=== PATIENT | male | born 1935 | race Caucasian/White ===

== ENCOUNTER 2017-02-14 22:33 | Inpatient (IN) | payer MEDICARE, OTHER ==
[~2017-02-14] VITALS: Ht 175.3 cm; Wt 49.4 kg
[~2017-02-14 22:33] MED LIST: CIPR500T4 PO; DONE10TA3 PO; ESCI10TA61 PO; FINA5TAB1 PO; MECL-305 PO; MEGE40SU6 PO; NAPR375T2 PO; OMEP40EC1 PO
--- NOTE | 2017-02-14 22:33 | NUR ---
BIBA TO ER BED 4
--- NOTE | 2017-02-14 22:35 | NUR ---
Patient being evaluated by DR. KLINE at bedside.
[2017-02-14 22:40] VITALS: BP 111/72
[2017-02-14] MEDS ORDERED: NACL 0.9% 1,000 ML IV ONE ×2 (22:40→22:45)
--- NOTE | 2017-02-14 22:40 | NUR ---
81Y/M PT. BIBA TO ED WITH C/O GENERALIZED WEAKNESS. PER EMS;PT.LOST APPETITE X 3DAYS, DIFFICULTY SWALLOWING AND NOT EATING X 3 DAYS. HX. DEMENTIA. DENIES N/V/D; SKIN IS PINK/WARM/DRY; PT. ALERT WITH WEAKNESS, UNABLE TO AMBULATE; LUNGS DIMINISHED BL; HR EVEN AND REGULAR; PT DENIES ANY FEVER, CP, SOB, OR COUGH AT THIS TIME; PATIENT STATES PAIN OF 0/10 AT THIS TIME; VSS; PATIENT POSITIONED FOR COMFORT; HOB ELEVATED; BEDRAILS UP X2; BED DOWN. ER MD MADE AWARE OF PT STATUS.
[2017-02-14 23:43] LABS: PROTHROMBIN TIME 11.1 secs (10.8-13.4)
[2017-02-14 23:44] LABS: INR 1.2 (0.8-1.2); PARTIAL THROMBOPLASTIN TIME 21.4 secs (22-35.6)
[2017-02-14 23:50] LABS: MEAN CORPUSCULAR VOLUME 106 fL (80-94); RED BLOOD CELL COUNT(AUTO) 4.89 MIL/uL (4.20-6.10); WHITE BLOOD COUNT (AUTO) 9.3 K/uL (4.8-10.8)
[2017-02-14 23:51] LABS: MEAN CORPUSCULAR HEMOGLOBIN 33 pg (27-31); MEAN CORPUSCULAR HGB CONC 31 g/dL (33-37); PLATELET COUNT (AUTO) 126 K/uL (140-450); RED CELL DISTRIBUTION WIDTH 15.3 % (11.6-13.7)
[2017-02-14 23:53] LABS: BAND % (MANUAL) 26 % (0-8); EOSINOPHILS % (MANUAL) 3 % (0-4); LYMPHOCYTES % (MANUAL) 18 % (20-46); MONOCYTES % (MANUAL) 4 % (5-12); NEUTROPHILS % (MANUAL) 49 (43-65)
[2017-02-15] VITALS (8 sets, daily range): BP systolic 98–125; BP diastolic 54–70
[2017-02-15 00:02] LABS: ANION GAP 20.2 (8-16); CARBON DIOXIDE 25.2 mmol/L (21-32); CHLORIDE 131 mmol/L (98-107); GLUCOSE 113 mg/dL (74-106); POTASSIUM 5.4 mmol/L (3.5-5.1); SODIUM SERUM 171 mmol/L (136-145)
[2017-02-15 00:03] LABS: CALCIUM 9.2 mg/dL (8.5-10.1); CREATININE 5.4 mg/dL (0.6-1.3); UREA NITROGEN, BLOOD 109 mg/dL (7-18)
[2017-02-15 00:04] LABS: ALANINE AMINOTRANSFERASE 23 U/L (12-78); ALBUMIN 2.6 g/dL (3.4-5.0); ALKALINE PHOSPHATASE 108 U/L (46-116); ASPARTATE AMINOTRANSFERASE 28 U/L (15-37); TOTAL BILIRUBIN 1.1 mg/dL (0.0-1.0); TOTAL PROTEIN, SERUM 7.8 g/dL (6.4-8.2)
[2017-02-15 00:05] LABS: LACTIC ACID 1.7 mmol/L (0.4-2.0)
[2017-02-15 00:30] LABS: APPEARANCE,URINE CLEAR (CLEAR); COLOR,URINE YELLOW (YELLOW); PH,URINE 5.5 (5.0-9.0); PROTEIN,URINE 1+ (NEGATIVE)
--- NOTE | 2017-02-15 00:30 | NUR ---
Patient appears to be resting comfortably in bed. Vital Signs within normal limits. Respirations even and unlabored.
[2017-02-15 00:31] LABS: BILIRUBIN,URINE NEGATIVE (NEGATIVE); BLOOD, URINE 3+ (NEGATIVE); LEUKOCYTE ESTERASE ,URINE TRACE (NEGATIVE); NITRITE, URINE NEGATIVE (NEGATIVE); UGLUCOSE NEGATIVE (NEGATIVE); UROBILINOGEN,URINE 0.2 EU/dL (0.2 - 1)
[2017-02-15 00:32] LABS: BACTERIA,URINE 3+ /HPF (None Seen); HYALINE CASTS, URINE 0-3 /LPF (None Seen); RBC,URINE TOO NUMEROUS TO COUN /HPF (0-5)
[2017-02-15] MEDS ORDERED: MAGNESIUM OXIDE 400 MG TAB PO PRN ×2 (00:50→02:40)
[2017-02-15] MEDS ORDERED: ALBUTEROL 0.083% 2.5 MG/3 ML NEBU INH PRN ×2 (00:50→08:05)
[2017-02-15] MEDS ORDERED: MAG SULF 2000 MG/WATER PREMIX 50 ML IV PRN ×2 (00:50→02:40)
[2017-02-15] MEDS ORDERED: MORPHINE SULFATE 2 MG/ML SYR IVP PRN (00:50)
[2017-02-15] MEDS ORDERED: ACETAMINOPHEN 325 MG TAB PO PRN (00:50)
[2017-02-15] MEDS ORDERED: IPRATROPIUM 0.02% 0.5 MG/2.5 ML NEBU INH PRN ×2 (00:50→08:05)
[2017-02-15] MEDS ORDERED: LORazepam 2 MG/ML VIAL IVP PRN (00:50)
[2017-02-15] MEDS ORDERED: diphenhydrAMINE 50 MG/ML VIAL IVP PRN (00:50)
[2017-02-15] MEDS ORDERED: HYDROcodone/APAP 5/325 MG 1 TAB TAB PO PRN ×2 (00:50)
[2017-02-15] MEDS ORDERED: BISACODYL 10 MG SUPP RC PRN (00:50)
[2017-02-15] MEDS ORDERED: ACETAMINOPHEN 650 MG SUPP RC PRN (00:50)
[2017-02-15] MEDS ORDERED: guaiFENesin DM 200/20 MG-10 ML 10 ML UDC PO PRN (00:50)
[2017-02-15] MEDS ORDERED: cloNIDine 0.1 MG TAB PO PRN (00:50)
[2017-02-15] MEDS ORDERED: POTASSIUM CHLORIDE 10 MEQ TABER PO PRN ×2 (00:50→02:40)
[2017-02-15] MEDS ORDERED: DOCUSATE SODIUM 250 MG GELCAP PO PRN (00:50)
[2017-02-15] MEDS ORDERED: ALUMINUM HYD/MAG/SIMETHICONE 30 ML UDC PO PRN (00:50)
[2017-02-15] MEDS ORDERED: SODIUM PHOSPHATE 118 ML ENEM RC PRN (00:50)
[2017-02-15] MEDS ORDERED: ONDANSETRON 4 MG/2 ML VIAL IVP PRN (00:50)
[2017-02-15] MEDS: NACL 0.45% 1,000 ML IV SCH ×3 (02:10→09:02)
--- NOTE | 2017-02-15 02:10 | NUR ---
RECEIVED PT TRANSFERRED FROM ER VIA PAMELLA MAURER, INITIAL ASSESSMENT STARTED, PT IS AAOX1, CONFUSED, APHASIC, NOT ABLE TO FOLLOW COMMANDS AND MAKE NEEDS KNOWN, FLACC 0, NO S/S OF SOB, BREATHING EVEN AND UNLABORED, DIMINISHED LUNG SOUNDS, ON O2 AT 2 L VIA NC, NO S/S OF CHEST PAIN, SR ON FINANCIAL REPRESENTATIVE, SOFT ABD WITH HYPOREACTIVE BOWEL SOUNDS, INCONTINENT WITH B&B'S, GENERALIZED WEAKNESS TO ALL EXTREMITIES, AFEBRILE, SKIN IS WARM AND DRY TO TOUCH, OPEN WOUND NOTED TO SACRAL AREA, (PICTURES TAKEN IN ER). IV SITE TO LEFT FOREARM 18 GA, PATENT AND INTACT, SL. PLACED PT TO COMFORT POSITION, FALL PRECAUTION AND ASPIRATION PRECAUTION IN PLACE, CALL LIGHT WITHIN REACH, WILL CONTINUE TO MONITOR.
--- NOTE | 2017-02-15 02:27 | NUR ---
CALLED DR. KRUEGER TO CLARIFY ORDERS. DR. KRUEGER SAID NO REPEAT TROPONIN, NO DIET ORDERS YET, NPO AT THIS TIME, MAGNESIUM SULFATE IV, K DUR, MAG OX ARE PRN ORDERS ONLY, WILL EDIT ORDERS TO DISREGARD THE "ONCE". DR. KRUEGER SAID TO INSERT LEGER CATH. WILL CONTINUE TO MONITOR PT. Addendum: 02/15/17 at 0524 by Jorge Rhoades RN DR. KRUEGER ALSO SAID NO ELECTROLYTES TO BE GIVEN FOR NOW.
--- NOTE | 2017-02-15 02:30 | NUR ---
Patient will be admitted to care of DR. GARCIA. Admited to ICU. Will go to room ICU 6. Belongings list completed. Report to JENNY SEAY.
[2017-02-15] MEDS ORDERED: PNEUMOCOCCAL VACCINE 23 MCG/0.5 ML VIAL IMVAC SCH (03:15)
--- NOTE | 2017-02-15 03:30 | NUR ---
LEGER CATHETER INSERTED ORDERED WITH STERILE TECHNIQUE, PT TOLERATED WELL.
--- NOTE | 2017-02-15 04:00 | NUR ---
PT IS ASLEEP IN BED, VSS. AM CARE PROVIDED, PT HAD A SMALL SOFT STOOL, LETICIA CARE PROVIDED, POSITION CHANGED FOR OFF LOAD PRESSURE.
--- NOTE | 2017-02-15 06:00 | NUR ---
NO CHANGE OF CONDITION AT THIS TIME, VSS. POSITION CHANGED FOR OFF LOAD PRESSURE.
--- NOTE | 2017-02-15 07:09 | NUR ---
REPORT GIVEN TO JENNY RAPHAEL AND JENNY LAWS FOR CONTINUE OF CARE, PT IS IN STABLE CONDITION AT THIS TIME.
--- NOTE | 2017-02-15 07:15 | NUR ---
RECEIVED REPORT FROM JENNY SEAY. PT IS SLEEPING IN BED. LETHARGIC. OPENS EYES, RESPOND TO TACTILE STIMULI. PT IS ON ROOM AIR. MOVES BILATERAL UPPER AND LOWER EXTREMITIES. SOFT MITTEN IN PLACE BILATERAL UPPER EXTREMITIES. LEFT FOREARM IV 18 GAUGE. PATENT AND INTACT. SKIN NOT INTACT. WOUNDS NOTED ON SACRUM AND BILATERAL UPPER AND LOWER EXTREMITIES. LEGER CATHETER IN PLACE. DRAINING TO GRAVITY DRAINAGE BAG. SAFETY PRECAUTIONS IN PLACE WITH BED IN LOWEST POSITION AND SIDE RAILS UP. CALL LIGHT WITHIN REACH. PT SR ON MONITOR. WILL CONTINUE TO MONITOR.
--- NOTE | 2017-02-15 07:15 | NUR ---
RECEIVED REPORT FROM JENNY SEAY. PT SLEEPING IN BED.
--- NOTE | 2017-02-15 07:30 | NUR ---
RT AT BEDSIDE TO ASSESS.
--- NOTE | 2017-02-15 07:45 | NUR ---
PT HAD SMALL BM. SOFT AND BROWN IN COLOR. LETICIA CARE PROVIDED. TURN AND REPOSITIONED FOR COMFORT. WILL CONTINUE TO MONITOR.
[2017-02-15] MEDS: ENOXAPARIN 30 MG/0.3 ML SYR SUBQ SCH (08:45)
--- NOTE | 2017-02-15 08:56 | NUR ---
MEDS GIVEN TOLERATED WELL
[2017-02-15 09:12] LABS: ANION GAP 1.5 (8-16); CALCIUM 8.5 mg/dL (8.5-10.1); CARBON DIOXIDE 22.3 mmol/L (21-32); CHLORIDE 132 mmol/L (98-107); GLUCOSE 81 mg/dL (74-106); POTASSIUM 4.8 mmol/L (3.5-5.1); SODIUM SERUM 151 mmol/L (136-145); UREA NITROGEN, BLOOD 100 mg/dL (7-18)
[2017-02-15 09:13] LABS: CREATININE 4.9 mg/dL (0.6-1.3)
--- NOTE | 2017-02-15 09:15 | NUR ---
PATIENT HAS BEEN SCREENED AND CATEGORIZED HIGH NUTRITION RISK. PATIENT WILL BE SEEN WITHIN 1-2 DAYS OF ADMISSION. 02/15/17-02/16/[address]
--- NOTE | 2017-02-15 09:50 | NUR ---
WOUND CARE EVALUATION NOTES: REASON FOR EVALUATION: OPEN WOUNDS COMPLETE SKIN ASSESSMENT DONE ON THIS 81 Y/O MALE PATIENT FROM HOME TO [facility], WITH INITIAL DIAGNOSIS OF DEHYDRATION, HYPERNATREMIA, HYPERKALEMIA AND ACUTE RENAL FAILURE. PAST MEDICAL HISTORY INCLUDE SEVERE DEMENTIA, PARKINSON'S DISEASE, HYPERTENSION AND ASTHMA. ALL ABOVE INFORMATION WAS OBTAINED FROM THE ADMISSION H&P. LABS ARE WBC 9.3, H/H 16.0/48, GLUCOSE 81, ALBUMIN 2.6, PT/INR 11.1/1.2 AND PTT 21.4. CURRENT MEDS INCLUDE ENOXAPARIN, ATIVAN, MORPHINE AND NORCO. PATIENT IS LETHARGIC AT THIS TIME, NON VERBAL BUT AROUSABLE BY NAME. ABLE TO FOLLOW SIMPLE COMMANDS. SKIN WARM TO TOUCH WNL, TOENAILS ARE THICKENED YELLOW, NO EDEMA, NO HAIR GROWTH AND +2 BILATERAL PEDAL PULSES. URINE AND BOWEL INCONTINENT, WITH FC 16FR PATENT AND INTACT TO LIGHT MARISOL URINE IN MODERATE AMOUNT. NOTED TO HAVE SOFT GREENISH STOOLS IN MODERATE AMOUNT. SURGICAL SCARRING NOTED ON BILATERAL KNEES AND MIDLINE ABDOMEN. NEEDS MAX ASSISTANCE IN TURNING. INITIAL PLAN OF CARE AND PRESSURE PREVENTIVE MEASURES DISCUSSED, UNABLE TO VERBALIZE UNDERSTANDING. WILL REINFORCE TEACHING. INTEGUMENTARY: BUE - ECCHYMOSIS - SCATTERED PURPLE LLE - ECCHYMOSIS - PURPLE BILATERAL HEELS - BLANCHABLE REDNESS SACRALCOCCYX - FUNGAL LIKE RASH WITH PARTIAL THICKNESS EROSION RECOMMENDATIONS: -SACRALCOCCYX TO PERIAREA: CLEANSE WITH MILD SOAP AND WATER, PAT DRY, APPLY ANTIFUNGAL CLEAR OINT BIDWC AND PRN WITH SOILING. LEAVE OPEN TO AIR -TURN AND REPOSITION PATIENT Q2H TO LEFT AND RIGHT SIDE ONLY TO OFFLOAD SACRALCOCCYX -ASSESS AND MONITOR SKIN CONDITION DURING POSITION CHANGE, PLEASE PAY PARTICULAR ATTENTION TO SACRALCOCCYX, ELBOWS AND HEELS -OFFLOAD BILATERAL HEELS BY PLACING PILLOWS UNDER CALVES AT ALL TIMES, UNLESS OTHERWISE CONTRAINDICATED -KEEP SKIN CLEAN AND DRY AT ALL TIMES. -PRESSURE REDISTRIBUTION SURFACE THERAPY. RECOMMENDATIONS DISCUSSED WITH PRIMARY RN. WILL FOLLOW UP PATIENT Q 7 DAYS AND PRN. PLEASE CONTACT [facility] FOR ANY CONCERNS, QUESTIONS AND CHANGES IN SKIN CONDITION.
--- NOTE | 2017-02-15 09:50 | NUR ---
WOUND CARE NURSE AT BEDSIDE TO EVALUATE PT. WILL F/U WITH ORDERS.
[2017-02-15] MEDS ORDERED: ANTIFUNGAL CLEAR OINTMENT TP PRN (10:00)
--- NOTE | 2017-02-15 10:00 | NUR ---
SMALL BM NOTED. SOFT AND BROWN. LETICIA CARE GIVEN. RETURN PT TO COMFORTABLE STATE. IV DRESSING CHANGED. DRESSING IS CLEAN. IV IS PATENT AND INTACT.
--- NOTE | 2017-02-15 10:04 | NUR ---
PER KIKI, INSURANCE VERIFIED FOR HN, TRACKING NUMBER IS [id number] NO REVIEW UNLESS THEY CALL FAXED INITIAL REVIEW TO [facility] [phone] PHONE PRAVIN [phone]
--- NOTE | 2017-02-15 11:30 | NUR ---
DR. KRUEGER AT BEDSIDE. WILL F/U WITH ORDERS.
--- NOTE | 2017-02-15 11:44 | NUR ---
02/14/17 RD INITIAL ASSESSMENT COMPLETED PLEASE REFER TO NUTRITION ASSESSMENT UNDER CARE ACTIVITY FOR ESTIMATED NUTRITIONAL NEEDS. RD RECOMMENDATIONS: 1. WHEN MEDICALLY APPROPRIATE ADVANCE DIET TO REGULAR WITH TEXTURE MODIFICATIONS PER SWALLOW EVAL. 2. CONSIDER SWALLOW EVAL D/T DIFFICULTY CHEWING AND SWALLOWING 3. INCREASED PROTEIN NEEDED FOR WOUND HEALING.--NOTE RD WILL MONITOR RENAL LABS 4. RD WILL F/U 2-3 DAYS; HIGH RISK. JOAQUINA HUDSON RD
[2017-02-15] MEDS: ANTIFUNGAL CLEAR OINTMENT TP SCH (12:02)
--- NOTE | 2017-02-15 13:00 | NUR ---
DAUGHTER AND AT BEDSIDE. ALL QUESTIONS ANSWERED.
--- NOTE | 2017-02-15 13:14 | NUR ---
MEDICATION ADMINISTERED ORDERED. TOLERATED WELL
--- NOTE | 2017-02-15 13:25 | NUR ---
DR. HUERTA AT BED SIDE TO SEE PT. WILL F/U WITH ORDERS.
[2017-02-15] MEDS: NACL 0.9% 1,000 ML IV SCH ×2 (13:46→23:40)
--- NOTE | 2017-02-15 13:56 | NUR ---
SMALL BM NOTED. SOFT AND BROWN. LETICIA CARE GIVEN. COMFORT MET.
--- NOTE | 2017-02-15 15:30 | NUR ---
PT RESTING COMFORTABLY. NO ACUTE DISTRESS NOTED. FLACC 0. FAMILY AT BEDSIDE.
--- NOTE | 2017-02-15 17:52 | NUR ---
REPORT GIVEN TO JENNY LEWIS. PT TO BE TRANSFERRED TO TELE 122 B.
--- NOTE | 2017-02-15 17:53 | NUR ---
RECEIVED REPORT FROM THE ICU NURSE. PT IS TO BE TRANSFERRED FROM ICU TO TELE. WILL GET ROOM READY. WILL AWAIT PT'S ARRIVAL ON TO THE UNIT.
--- NOTE | 2017-02-15 18:30 | NUR ---
PT TRANSFERRED TO TELEMETRY IN STABLE CONDITION. RECEIVED BY 2 RN. FAMILY AT BEDSIDE.
--- NOTE | 2017-02-15 18:36 | NUR ---
PT JUST ARRIVED ON THE UNIT WITH 2 ICU NURSES. PT IS LUCID. PT AROUSABLE WITH CALLING OUT NAME AND SHAKING. IV ON L FA 18G. INTACT AND PATENT. PER ICU NURSE, LEAKING D/T LARGE GAUGE BUT WORKS JUST FINE. LEGER CATH IN PLACE. ADMINISTERED TELE MONITOR. IV START AT NS AT 100ML. PT HAS BILATERAL UPPER AND LOWER EXTREMITIES- SCRATCHES. PT ALSO HAS SACRAL ABRASION. WOUND CARE STATES THAT IT IS A FUNGAL INFECTION. ANTI-FUNGAL OINTMENT ORDERED. CALLED HOUSE SUPER AND ORDERED SCD'S. TRANSITIONAL STUDIES INSTRUCTOR BROUGHT ROCEPHIN AND FINASTERIDE PO MED FOR BPH. PT RESTING COMFORTABLY WITH FAMILY AT BEDSIDE. WILL ENDORSE PT TO THE LEARNING SPECIALIST NURSE.
--- NOTE | 2017-02-15 19:27 | NUR ---
ENDORSED PT TO FACILITY SERVICE MANAGER NURSE AT BEDSIDE. PT IN STABLE CONDITION.
--- NOTE | 2017-02-15 19:30 | NUR ---
RECEIVED REPORT FROM DAY SHIFT NURSE. PT FAMILY AT BEDSIDE. PT APHASIC, CACHETIC APPEARANCE, FLACC 7, WILL MEDICATE ORDERED. PT RESTING IN BED, OFFLOAD PRESSURE SITES. PT ON 2L O2 NC. NO S/S OF SOB OR ACUTE DISTRESS. PT C/O PAIN. CHARACTER ACTOR IN PLACE. LEGER CATH IN PLACE, DRAINING DARK MARISOL URINE. SCDS IN PLACE. BUE AND BLE SCRATCHES NOTED, SACRAL FUNGRAL REDNESS NOTED. IV ACCESS ASYMPTOMATIC, PATENT AND INTACT. IVF INFUSING WELL. DISCUSSED AND REVIEWED PLAN OF CARE WITH PT, PT VERBALIZES UNDERSTANDING. SAFETY MEASURES ENSURED. CALL LIGHT WITHIN REACH. WILL CONTINUE TO MONITOR.
--- NOTE | 2017-02-15 21:05 | NUR ---
PT DAUGHTER AT BEDSIDE. FLACC 7, SEE PAIN ASSESSMENT, ADMINISTERED PAIN MEDICATION ORDERED. PT TOLERATED WELL. ALL NEEDS MET. SAFETY MEASURES ENSURED. WILL CONTINUE TO MONITOR.
[2017-02-16] VITALS: BP 101/63
--- NOTE | 2017-02-16 | NUR ---
PT OBSERVED TO BE REMOVING NASAL CANNULA OCCASIONALLY. NASAL CANNULA READJUSTED AND FASTEN APPROPRIATELY. NO S/S OF SOB OR ACUTE DISTRESS. O2 SAT 100%. WILL CONTINUE TO MONITOR. PT RESTING COMFORTABLY IN BED, FLACC 0. PT REPOSITIONED WITH HOUSING DIRECTOR, OFFLOADED PRESSURE SITES. WOUND CARE PERFORMED ORDERED. PT TOLERATED WELL. SAFETY MEASURES ENSURED. WILL CONTINUE TO MONITOR.
[2017-02-16] MEDS: ANTIFUNGAL CLEAR OINTMENT TP SCH ×2 (01:10→13:00)
[2017-02-16 04:00] VITALS: BP 103/57
--- NOTE | 2017-02-16 04:00 | NUR ---
PT REMAINS TO DISPLACE NASAL CANNULA TOWARDS HIS MOUTH OCCASIONALLY. NASAL CANNULA READJUSTED AND FASTENED APPROPRIATELY. NO S/S OF SOB OR ACUTE DISTRESS. O2 SAT 100%. WILL CONTINUE TO MONITOR. PT RESTING COMFORTABLY IN BED, FLACC 0. PT HAD SMALL AMOUNT OF BROWN, SOFT BM. PT CLEANED, AND FUNGAL CREAM REAPPLIED. PT REPOSITIONED, OFFLOADED PRESSURE SITES. PT TOLERATED WELL. SAFETY MEASURES ENSURED. WILL CONTINUE TO MONITOR.
--- NOTE | 2017-02-16 06:00 | NUR ---
PT REPOSITIONED, OFFLOADED PRESSURE SITES. PT TOLERATED WELL. PT RESTING COMFORTABLY. ALL NEEDS MET. SAFETY MEASURES ENSURED. WILL CONTINUE TO MONITOR.
[2017-02-16 06:34] LABS: BASOPHILS # (AUTO) 0.1 K/uL (0.00-0.22); BASOPHILS % (AUTO) 0.9 % (0.0-2.0); EOSINOPHILS # (AUTO) 0.3 K/uL (0-0.4); EOSINOPHILS % (AUTO) 3.7 % (0.0-4.0); HEMATOCRIT 40.4 % (36-52); HEMOGLOBIN 13.1 g/dL (12.0-18.0); LYMPHOCYTES # (AUTO) 1.3 K/uL (2.0-11.5); LYMPHOCYTES % (AUTO) 14.7 % (20.5-51.1); MEAN CORPUSCULAR HEMOGLOBIN 34 pg (27-31); MEAN CORPUSCULAR HGB CONC 32 g/dL (33-37); MEAN CORPUSCULAR VOLUME 106 fL (80-94); MONOCYTES # (AUTO) 0.6 K/uL (0.8-1.0); MONOCYTES % (AUTO) 7.1 % (1.7-9.3); NEUTROPHILS # (AUTO) 6.4 K/uL (1.8-7.7); NEUTROPHILS % (AUTO) 73.6 % (42.2-75.2); PLATELET COUNT (AUTO) 106 K/uL (140-450); RED BLOOD CELL COUNT(AUTO) 3.81 MIL/uL (4.20-6.10); WHITE BLOOD COUNT (AUTO) 8.7 K/uL (4.8-10.8)
[2017-02-16 06:56] LABS: ALANINE AMINOTRANSFERASE 25 U/L (12-78); ALKALINE PHOSPHATASE 170 U/L (46-116); ASPARTATE AMINOTRANSFERASE 42 U/L (15-37); CALCIUM 7.9 mg/dL (8.5-10.1); CARBON DIOXIDE 19.9 mmol/L (21-32); CHLORIDE 134 mmol/L (98-107); GLUCOSE 52 mg/dL (74-106); MAGNESIUM 2.6 mg/dL (1.8-2.4); POTASSIUM 4.9 mmol/L (3.5-5.1); TOTAL BILIRUBIN 0.8 mg/dL (0.0-1.0); TOTAL PROTEIN, SERUM 6.2 g/dL (6.4-8.2)
[2017-02-16 07:04] LABS: CREATININE 4.3 mg/dL (0.6-1.3); SODIUM SERUM 167 mmol/L (136-145); UREA NITROGEN, BLOOD 87 mg/dL (7-18)
--- NOTE | 2017-02-16 07:15 | NUR ---
DECREASED FI02 FROM .28 TO .21 JENNY CELESTIN
--- NOTE | 2017-02-16 07:30 | NUR ---
ENDORSED PLAN OF CARE TO DAY SHIFT NURSE. CONDITION STABLE.
[2017-02-16 08:00] VITALS: BP 104/52
[2017-02-16] MEDS: MEGESTROL 400 MG/10 ML UDC PO SCH (09:00)
[2017-02-16] MEDS: FINASTERIDE 5 MG TAB PO SCH (09:00)
[2017-02-16] MEDS: DONEPEZIL 10 MG TAB PO SCH (09:00)
[2017-02-16] MEDS: ENOXAPARIN 30 MG/0.3 ML SYR SUBQ SCH (10:05)
[2017-02-16] MEDS: NACL 0.45% 1,000 ML IV SCH ×3 (10:18→23:30)
[2017-02-16 12:00] VITALS: BP 99/50
--- NOTE | 2017-02-16 13:59 | NUR ---
FAXED CONCURRENT REVIEW TO [facility] [phone] PHONE PRAVIN [phone] TRACKING NUMBER [id number]
[2017-02-16 16:00] VITALS: BP 95/53
--- NOTE | 2017-02-16 17:15 | NUR ---
PATIENT SEEN BY SPEECH THERAPIST
--- NOTE | 2017-02-16 17:39 | NUR ---
* ST NOTE * Pt seen at bedside with caregivers/family present. Pt appearing increasingly lethargic and drowsy at this time. Bedside Dysphagia and oral mechanism exams completed. See evaluation report for further details. Pt requiring maximal verbal, tactile & visual cues to answer questions and to become alert enough for PO intake. Pt tolerating 2/2 alternating PO trials of puree applesauce 3 CCs at a time via a teaspoon w/out s/s of aspiration. Pt however requiring extended amount of time for AP bolus transit potentially secondary to decreased level of alertness and decreased cognitive function (PD and advanced dementia). Pt's laryngeal elevation appearing intact and without delay, as wel as laryngeal excursion. Pt also tolerating 1/1 alternating PO trials of honey-thick apple juice 3 CCs at a time via a teaspoon w/out s/s of aspiration but once again requiring maximal verbal, tactile & visual cueing as well as education to accept trial and for AP bolus transit. Pt's family reporting hx of pt pocketing foods, thus leading to hx of aspiration PNA and/or choking. Pt's caregivers/family education thus completed regarding safe swallow compensatory strategies pt and caregivers/family may utilize to facilitate swallow function as well as to clear oral cavity of residue/pocketed food during and after PO intake, with caregivers/family exhibiting return demonstration. It is thus recommended pt's PO diet be modified to ORAL GRATIFICATION only where pt and caregivers/family/staff may request meals or snacks of Puree textures with Honey-thickened liquids for pt if pt is alert and safe enough for PO intake at that time. However it is also recommended RD evaluate pt for alternative means of nutrition, as pt is at high risk for dehydration and malnutrition secondary to decreased PO intake, with pt indifferent to clinician's remarks but with caregivers/family agreeable with and verbalizing understanding of clinician's recommendations. No further ST follow up recommended at this time. Pt, caregivers/family and caregiver/Nursing education completed regarding results of evaluation; benefits of abiding by aspiration precautions, recommended PO diet consistency, recommended oral hygiene program after PO intake, and RD referral for alternative means of nutrition; and prognosis for improvement; with pt indifferent to clinician's recommendations but with caregivers/family and caregiver/Nursing agreeable with and verbalizing understanding of clinician's recommendations. Recommend: - ORAL GRATIFICATION of Puree textures with Honey-thickened liquids PRN - Feed only when fully alert - CLOSE supervision during PO intake by caregivers/staff/family to assure STRICT aspiration precautions are in place - Complete oral hygiene after PO intake secondary to pt at high risk for choking/aspiration - RD referral for alternative means of nutrition secondary to pt exhibiting poor PO intake and decreased level of alertness - Pt requires total assistance with feeding No further ST follow up recommended at this time. G8996 CM G8997 CL G8997 CK NOMS Level 4 Time In/Out 16:15 - 17:00
[2017-02-16] MEDS ORDERED: DEXTROSE 50% 50 ML SYR IVP ONE (18:44)
--- NOTE | 2017-02-16 18:45 | NUR ---
BLOOD SUGAR 39. PATIENT AROUSABLE AND RESPONSIVE. D50 [address] PATI CANALES. WILL REASSESS
--- NOTE | 2017-02-16 18:50 | NUR ---
SPOKE WITH DR CARRILLO AND INFORMED HER ABOUT THE PATIENT'S BLOOD SUGAR. ORDERS RECEIVED
[2017-02-16] MEDS ORDERED: DEXTROSE 50% 50 ML SYR IVP PRN (19:00)
--- NOTE | 2017-02-16 19:12 | NUR ---
BLOOD SUGAR RECHECKED 140. WILL CONTINUE TO MONITOR
[2017-02-16 19:16] LABS: ANION GAP 20.8 (8-16); CALCIUM 7.9 mg/dL (8.5-10.1); CARBON DIOXIDE 17.9 mmol/L (21-32); CHLORIDE 132 mmol/L (98-107); POTASSIUM 4.7 mmol/L (3.5-5.1)
[2017-02-16 19:22] LABS: GLUCOSE 45 mg/dL (74-106); SODIUM SERUM 166 mmol/L (136-145)
[2017-02-16 19:23] LABS: CREATININE 4.2 mg/dL (0.6-1.3); UREA NITROGEN, BLOOD 80 mg/dL (7-18)
--- NOTE | 2017-02-16 19:30 | NUR ---
RECEIVED REPORT FROM DAY RN AT BEDSIDE, PATIENT SLEEPING IN BED, FAMILY AT BEDSIDE, PT EASILY AROUSABLE, AAOX1 ON ROOM AIR, NO SOB OR SIGN OF DISTRESS AT THIS TIME, IV TO LEFT FA PATENT AND INTACT, NOTED SCRATCHES TO PATIENT'S BILATERAL LOWER EXTREMITIES. LEGER IN PLACE DRAINING MARISOL URINE TO GRAVITY. DISCUSSED PLAN OF CARE WITH PATIENT AND FAMILY, PATIENT UNABLE TO VERBALIZE UNDERSTANDING, VERY LETHARGIC AT THIS TIME, SAFETY MEASURES CHECKED, CALL LIGHT WITHIN REACH. WILL CONTINUE TO MONITOR.
--- NOTE | 2017-02-16 19:30 | NUR ---
REPORT GIVEN AT BEDSIDE. PATIENT ENDORSED IN STABLE CONDITION
[2017-02-16] MEDS: DEXT 5% / NACL 0.45% 1,000 ML IV SCH (19:55)
[2017-02-16 20:00] VITALS: BP 97/53
--- NOTE | 2017-02-16 21:00 | NUR ---
BS CHECK 142, NO COVERAGE NEEDED.
[2017-02-16] MEDS: BLOOD GLUCOSE MONITORING 1 DEV DEV FS SCH (21:05)
--- NOTE | 2017-02-16 22:30 | NUR ---
PATIENT SLEEPING, NO SOB OR SIGN OF DISTRESS AT THIS TIME, CALL LIGHT WITHIN REACH. WILL CONTINUE TO MONITOR
[2017-02-17] VITALS: BP 105/57
--- NOTE | 2017-02-17 | NUR ---
PT RESTING COMFORTABLY IN BED, FLACC 0. IVF INFUSING WELL. ALL NEEDS MET. SAFETY MEASURES ENSURED. Addendum: 02/18/17 at 0250 by Giorgi Hays RN WRONG TIME; CORRECT DATE/TIME: 02/18/17 0000
--- NOTE | 2017-02-17 00:26 | NUR ---
VITAL SIGNS STABLE, NO SOB OR SIGN OF DISTRESS, PATIENT WOKE UP TO TOUCH PATIENT MUMBLING UNABLE TO UNDERSTAND PATIENT. PATIENT FELL BACK TO SLEEP, CALL LIGHT WITHIN REACH. WILL CONTINUE TO MONITOR.
[2017-02-17] MEDS: ANTIFUNGAL CLEAR OINTMENT TP SCH ×2 (01:08→13:11)
--- NOTE | 2017-02-17 02:40 | NUR ---
PATIENT SLEEPING, NO SOB OR SIGN OF DISTRESS AT THIS TIME, CALL LIGHT WITHIN REACH. WILL CONTINUE TO MONITOR.
[2017-02-17] MEDS: DEXT 5% / NACL 0.45% 1,000 ML IV SCH ×4 (03:00→23:36)
[2017-02-17 04:00] VITALS: BP 111/58
--- NOTE | 2017-02-17 04:10 | NUR ---
VITAL SIGNS STABLE, NO SOB OR SIGN OF DISTRESS AT THIS TIME, CALL LIGHT WITHIN REACH. WILL CONTINUE TO MONITOR.
[2017-02-17] MEDS: NACL 0.45% 1,000 ML IV SCH ×2 (06:10→13:11)
[2017-02-17] MEDS: BLOOD GLUCOSE MONITORING 1 DEV DEV FS SCH ×4 (06:42→21:44)
[2017-02-17 07:01] LABS: ANION GAP 14.7 (8-16); CALCIUM 7.7 mg/dL (8.5-10.1); CARBON DIOXIDE 19.2 mmol/L (21-32); CHLORIDE 129 mmol/L (98-107); GLUCOSE 204 mg/dL (74-106); POTASSIUM 3.9 mmol/L (3.5-5.1)
[2017-02-17 07:12] LABS: SODIUM SERUM 159 mmol/L (136-145); UREA NITROGEN, BLOOD 74 mg/dL (7-18)
[2017-02-17 07:13] LABS: CREATININE 4.1 mg/dL (0.6-1.3)
--- NOTE | 2017-02-17 07:15 | NUR ---
RECEIVED PATIENT REPORT AT BEDSIDE. PATIENT LETHARGIC BUT AROUSABLE. NO S/S OF DISTRESS NOTED. PATIENT BREATHING ON ROOM AIR. LEGER CATHETER IN PLACE, DRAINING CLEAR YELLOW URINE. IV LINE TO THE LEFT FA INTACT WITH IVF INFUSING WELL. PATIENT ON TELE MONITORING. BED LOWERED WITH CALL LIGHT WITHIN REACH. WILL CONTINUE TO MONITOR
--- NOTE | 2017-02-17 07:21 | NUR ---
ENDORSED PATIENT TO DAY RN AT BEDSIDE, PATIENT IN STABLE CONDITION
[2017-02-17 08:00] VITALS: BP 108/61
--- NOTE | 2017-02-17 08:30 | NUR ---
MADE DR GARCIA AWARE OF THE INCREASE IN PATIENT'S BLOOD SUGAR. ORDERS TO REDUCE THE RATE OF IVF TO 100ML/HR
[2017-02-17] MEDS: MEGESTROL 400 MG/10 ML UDC PO SCH (09:00)
[2017-02-17] MEDS: FINASTERIDE 5 MG TAB PO SCH (09:00)
[2017-02-17] MEDS: DONEPEZIL 10 MG TAB PO SCH (09:00)
--- NOTE | 2017-02-17 09:00 | NUR ---
SCHEDULED PO MEDICATIONS NOT ADMINISTERED. PATIENT TOO LETHARGIC TOO SWALLOW
[2017-02-17] MEDS: ENOXAPARIN 30 MG/0.3 ML SYR SUBQ SCH (09:56)
--- NOTE | 2017-02-17 10:05 | NUR ---
PATIENT HAD A BM. PERINEAL CARE GIVEN. PATIENT REPOSITIONED. WILL CONTINUE TO MONITOR
[2017-02-17] MEDS: INSULIN LISPRO SLIDING SCALE 100 UNITS/ML VIAL SUBQ PRN (12:19)
--- NOTE | 2017-02-17 15:27 | NUR ---
ENDORSED THE PATIENT TO JENNY ROGERS
--- NOTE | 2017-02-17 15:45 | NUR ---
REPORT RECEIVED FROM DEEDEE RN, PT RESTING WITH EYES CLOSED, OPENS EYES TO VOICE, PT DOES NOT VERBALLY RESPOND, SPIT UP PUREED GREEN PEAS HE HAD KEPT IN HIS MOUTH, RETURNS BACK TO SLEEP IMMEDIATLY, RESP EVEN UNLABORED ON ROOM AIR IN NAD, LT FA WITH 18G IV, SITE CLEAR, + EDEMA NOTED TO BILAT HANDS AND FEET, CAP REFILL <3, SKIN WARM DRY COLOR WNL, FAMILY AT BEDSIDE, CALL LLOYD WITH IN REACH, SAFETY MEASURES MET, WILL CONTINUE TO MONITOR
[2017-02-17 16:00] VITALS: BP 96/57
--- NOTE | 2017-02-17 18:10 | NUR ---
PT SITTING UP IN BED, FAMILY AT BEDSIDE FEEDING PT, FAMILY STATES PT TOOK A FEW SIPS OF SOUP, RESP EVEN UNLABORED, PT APPEARS COMFORTABLE, NO IMMEDIATE NEEDS IDENTIFIED, WILL CONTINUE TO MONITOR.
--- NOTE | 2017-02-17 19:30 | NUR ---
REPORT GIVEN TO FLUID DESIGNER, PT IN STABLE CONDITION
--- NOTE | 2017-02-17 19:31 | NUR ---
RECEIVED REPORT FROM DAY SHIFT NURSE. PT FAMILY AT BEDSIDE. PT AOX1, LETHARGIC, CACHETIC APPEARANCE, FLACC 0. PT RESTING IN BED, OFFLOAD PRESSURE SITES. NO S/S OF SOB OR ACUTE DISTRESS. LEGER CATH IN PLACE, DRAINING WELL. SCDS IN PLACE. BUE AND BLE SCRATCHES NOTED, SACRAL FUNGRAL REDNESS NOTED. BILATERAL HAND SWELLING NOTED. IV ACCESS ASYMPTOMATIC, PATENT AND INTACT. IVF INFUSING WELL. DISCUSSED AND REVIEWED PLAN OF CARE WITH PT, WILL CONTINUE TO REINFORCE TEACHING. SAFETY MEASURES ENSURED. CALL LIGHT WITHIN REACH. WILL CONTINUE TO MONITOR.
--- NOTE | 2017-02-17 20:15 | NUR ---
DR REYES PAGED, ORDERS RECEIVED TO CONTINUE D5-0.45NS AND DISCONTINUE 0.45NS. ORDERS CARRIED OUT.
--- NOTE | 2017-02-17 21:45 | NUR ---
BLOOD GLUCOSE 106, NO INSULIN COVERAGE NEEDED. PT RESTING COMFORTABLY IN BED, FLACC 0. IVF INFUSING WELL. ALL NEEDS MET. SAFETY MEASURES ENSURED.
[2017-02-18] VITALS: BP 120/59
--- NOTE | 2017-02-18 | NUR ---
PT RESTING COMFORTABLY IN BED, FLACC 0. IVF INFUSING WELL. ALL NEEDS MET. SAFETY MEASURES ENSURED.
[2017-02-18] MEDS: ANTIFUNGAL CLEAR OINTMENT TP SCH ×2 (01:00→12:59)
--- NOTE | 2017-02-18 02:00 | NUR ---
WOUND CARE PERFORMED ORDERED. PT REPOSITIONED AND OFFLOADED PRESSURE SITES. PT TOLERATED WELL. IVF INFUSING WELL. ALL NEEDS MET. SAFETY MEASURES ENSURED.
--- NOTE | 2017-02-18 04:00 | NUR ---
PT RESTING COMFORTABLY IN BED, FLACC 0. PT CLEANED AND REPOSITIONED, OFFLOADED PRESSURE SITES. IVF INFUSING WELL. ALL NEEDS MET. SAFETY MEASURES ENSURED.
[2017-02-18] MEDS: BLOOD GLUCOSE MONITORING 1 DEV DEV FS SCH ×5 (06:16→21:30)
[2017-02-18 07:10] LABS: HEMOGLOBIN 12.6 g/dL (12.0-18.0); MEAN CORPUSCULAR HEMOGLOBIN 34 pg (27-31); MEAN CORPUSCULAR HGB CONC 32 g/dL (33-37); MEAN CORPUSCULAR VOLUME 104 fL (80-94); PLATELET COUNT (AUTO) 132 K/uL (140-450); RED BLOOD CELL COUNT(AUTO) 3.75 MIL/uL (4.20-6.10); WHITE BLOOD COUNT (AUTO) 8.2 K/uL (4.8-10.8)
--- NOTE | 2017-02-18 07:33 | NUR ---
ENDORSED PLAN OF CARE TO DAY SHIFT NURSE. CONDITION STABLE.
--- NOTE | 2017-02-18 07:35 | NUR ---
REPORT RECIEVED FROM BUTCHER HEAD, PT AWAKE WITH EYES OPEN, MAKES EYE CONTACT, REACHES OUT FOR HAND SHAKE, DOES NOT ANSWER QUESTIONS VERBALLY AT THIS TIME, RESP EVEN UNLABORED ON ROOM AIR, IVF INFUSING TO LEFT FA, SITE CLEAR, RIGHT HAND WITH SOME EDEMA, GOOD CAP REFILL <3SEC, ELEVATED ON PILLOW, LEGER DRAINING DARK YELLOW URINE, CALL LLOYD WITHIN REACH, BED LOCKED IN LOW POSITION, SIDE RAILS UP X2, BED ALARM ON, WILL CONTINUE TO MONITOR.
[2017-02-18 07:47] LABS: BAND % (MANUAL) 7 % (0-8); BASOPHILS % (MANUAL) 0 % (0-2); EOSINOPHILS % (MANUAL) 2 % (0-4); LYMPHOCYTES % (MANUAL) 13 % (20-46); MONOCYTES % (MANUAL) 5 % (5-12); NEUTROPHILS % (MANUAL) 73 (43-65); PLATELET ESTIMATE SLIGHTLY DECREASED
[2017-02-18 08:00] VITALS: BP 108/63
[2017-02-18] MEDS: DONEPEZIL 10 MG TAB PO SCH (08:38)
[2017-02-18] MEDS: MEGESTROL 400 MG/10 ML UDC PO SCH (08:38)
[2017-02-18] MEDS: FINASTERIDE 5 MG TAB PO SCH (08:38)
[2017-02-18 08:41] LABS: ANION GAP 14.4 (8-16); CALCIUM 7.7 mg/dL (8.5-10.1); CARBON DIOXIDE 18.3 mmol/L (21-32); CHLORIDE 127 mmol/L (98-107); CREATININE 3.6 mg/dL (0.6-1.3); GLUCOSE 155 mg/dL (74-106); POTASSIUM 3.7 mmol/L (3.5-5.1); SODIUM SERUM 156 mmol/L (136-145); UREA NITROGEN, BLOOD 56 mg/dL (7-18)
[2017-02-18] MEDS: ENOXAPARIN 30 MG/0.3 ML SYR SUBQ SCH (08:41)
--- NOTE | 2017-02-18 09:14 | NUR ---
TELEPHONE CONSENT FOR EGD,PEG OBTAINED BY CHARGE NURSE ABIGAIL ALVARADO FROM [facility].
--- NOTE | 2017-02-18 09:20 | NUR ---
PT ONLY TAKES 1-2 SPOONS OF APPLE SACUSE, REFUSED ALL OF MEDS, DR ALICIA AT BEDSIDE, PT NOW PLACED ON NPO. PT RESTING QUIETLY IN NAD, RESP EVEN UNLABORED, CALL LLOYD WITHIN REACH, SAFETY MEASURES IN PLACE, WILL CONTINUE TO MONITOR.
--- NOTE | 2017-02-18 11:14 | NUR ---
02/18/17 RD FOLLOW UP COMPLETED PLEASE REFER TO NUTRITION PROGRESS NOTE UNDER CARE ACTIVITY FOR ESTIMATED NUTRITION NEEDS. RD RECOMMENDATIONS: 1. CONTINUE NPO MEDICALLY APPROPRIATE. 2. CONSULT RDN PRN. 3. RD WILL F/U 2-3 DAYS; HIGH RISK. JOHN HORNER MS, RDN
[2017-02-18] MEDS: DEXT 5% / NACL 0.45% 1,000 ML IV SCH (12:57)
--- NOTE | 2017-02-18 13:03 | NUR ---
PT RESTING QUIETLY IN NAD, RESP EVEN UNLABORED, SKIN COOL DRY COLOR WNL, MAKES EYE CONTACT, HOLDS HANDS AND NODS, LEGER DRAINING, DUE ROCEPHIN STARTED, IV SITE CLEAR, ANTIFUNGAL APPLIED PER ORDER, PERICARE DONE, CALL LLOYD WITHIN REACH, BED LOCKED IN LOW POSITION, SIDE RAILS UP, WILL CONTINUE TO MONITOR.
--- NOTE | 2017-02-18 15:53 | NUR ---
FAMILY AT BEDSIDE, PLAN OF CARE REVIEWED, FAMILY AWARE OF NPO STATUS FOR PROCEDURE TOMORROW, ALL QUESTIONS ASKED AND ANSWERED, PT AWAKE INTERACTING WITH FAMILY, IVF INFUSING WELL, SITE CLEAR, LEGER DRAINING WELL, CALL LLOYD WITHIN REACH, BED LOCKED IN LOW POSITION, SIDE RAILS UP X2, WILL CONTINUE TO MONITOR.
[2017-02-18 15:57] VITALS: BP 102/52
--- NOTE | 2017-02-18 18:00 | NUR ---
PT SLEEPING WITH EYES CLOSED, RESP EVEN UNLABORED ON ROOM AIR, SKIN WARM DRY COLOR WNL, IVF INFUSING WELL, SITE CLEAR, FAMILY AT BEDSIDE, VOICES NO IMMEDIATE NEEDS AT THIS TIME, CALL LLOYD WITHIN REACH, BED LOCKED IN LOW POSITION, SIDE RAILS UP X2, WILL CONTINUE TO MONITOR.
--- NOTE | 2017-02-18 19:12 | NUR ---
REPORT GIVEN TO PERSONNEL ADVISER WITH PT IN STABLE CONDITION.
--- NOTE | 2017-02-18 19:13 | NUR ---
PATIENT IS CURRENTLY SLEEPING AROUSABLE TO WHEN CALLED BY NAME AND SHAKEN.PATIENT CONTINUES TO BE NPO AND IS CURRENTLY RESTING IN BED.IVF INFUSING WELL IV SITE PATENT.FAMILY AT BEDSIDE WITH THE PATIENT.PATIENT WILL BE TURNED AND REPOSITIONED FOR COMFORT.SWELLING NOTED TO BOTH ARMS AND THEY ARE KEPT ON PILLOWS.LEGER CATHETER DRAINING TO GRAVITY AT THIS TIME.WILL CONTINUE TO MONITOR.
--- NOTE | 2017-02-18 19:45 | NUR ---
PATIENT HAD BM SOFT BROWN WAS CLEANED GOOD PERICARE GIVEN DRESSING NOTED TO SACRAL AREA CURRENTLY DRY AND INTACT.PATIENT WAS TURNED AND REPOSITIONED BY MINESH HERNANDEZ AND OFFLOADING DONE WITH PILLOWS.PATIENT KEPT COMFORTABLE.CALL LIGHT WITHIN REACH FREQUENT VISUAL CHECKS DONE.
[2017-02-18 20:00] VITALS: BP 111/66
--- NOTE | 2017-02-18 21:05 | NUR ---
DRESSING TO IV SITE CHANGED.
--- NOTE | 2017-02-18 22:55 | NUR ---
PATIENT IS CURRENTLY SLEEPING IVF INFUSING WELL IV SITE PATENT.
[2017-02-19] MEDS: ANTIFUNGAL CLEAR OINTMENT TP SCH ×2 (01:10→13:00)
--- NOTE | 2017-02-19 01:10 | NUR ---
PATIENT HAS BEEN CLEANED HAD AN EPISODE OF SOFT BROWN STOOL SMALL AND WAS GIVEN GOOD PERICARE AND WAS CLEANED AND REPOSITIONED FOR COMFORT OFFLOADING DONE ARMS HAVE PILLOWS. WITH THE ASSISTANCE OF MINESH HERNANDEZ.IVF INFUSING WELL IV SITE PATENT.NO PAIN OR DISCOMFORT NOTED.MD HUERTA CAME AND SAW THE PATIENT.CALL LIGHT WITHIN REACH WILL CONTINUE TO MONITOR.
[2017-02-19] MEDS: DEXT 5% / NACL 0.45% 1,000 ML IV SCH ×3 (02:39→19:00)
--- NOTE | 2017-02-19 03:15 | NUR ---
PATIENT CONTINUES TO BE NPO SLEEPING WELL IN NO DISTRESS CONTINUES TO BE OBSERVED.
[2017-02-19 04:50] VITALS: BP 93/62
--- NOTE | 2017-02-19 05:30 | NUR ---
PATIENT IS CURRENTLY RESTING IN BED AWAKE BUT CALM AND PATIENT WAS CLEANED HAD ANOTHER EPISODE OF SOFT BM.DRESSING TO SACRALCOCCYGEAL AREA CAME OFF SO I CHANGED THE DRESSING AND RECORDED IT UNDER (WOUND ASSESSMENT.) IVF INFUSING WELL IV SITE PATENT.PATIENT CONTINUES TO BE MONITORED.
[2017-02-19] MEDS: BLOOD GLUCOSE MONITORING 1 DEV DEV FS SCH ×5 (06:13→20:57)
[2017-02-19 06:30] LABS: ANION GAP 15.6 (8-16); CALCIUM 7.6 mg/dL (8.5-10.1); CARBON DIOXIDE 15.3 mmol/L (21-32); CHLORIDE 123 mmol/L (98-107); CREATININE 3.3 mg/dL (0.6-1.3); GLUCOSE 163 mg/dL (74-106); POTASSIUM 3.9 mmol/L (3.5-5.1); SODIUM SERUM 150 mmol/L (136-145); UREA NITROGEN, BLOOD 46 mg/dL (7-18)
--- NOTE | 2017-02-19 06:55 | NUR ---
PATIENT IS CURRENTLY SLEEPING IN BED STABLE IVF INFUSING WELL NO PAIN OR DISCOMFORT NOTED.
--- NOTE | 2017-02-19 07:15 | NUR ---
RECEIVED PT REPORT AT BEDSIDE FROM NIGHT NURSE. PT IS AOX1. PT IS ON ROOM AIR AND SHOWS NO S/S OF DISTRESS NOTED. PT HAS NO COMPLAINS OF PAIN. NOTED IV ON THE LEFT FA WITH IV FLUIDS RUNNING. PT SKIN IS INTACT WITH NOTED DRESSING ON THE SACRUM DRY AND INTACT. PT HAS NON PITTING EDEMA ON THE LOWER EXTREMITIES. PT BED IS LOWERED AND FLAT WITH CALL LIGHT WITHIN REACH.
--- NOTE | 2017-02-19 07:20 | NUR ---
REPORT ENDORSED AT BEDSIDE TO JENNY VILLARREAL.
[2017-02-19 08:00] VITALS: BP 100/70
[2017-02-19] MEDS: DONEPEZIL 10 MG TAB PO SCH (08:40)
[2017-02-19] MEDS: FINASTERIDE 5 MG TAB PO SCH (08:41)
[2017-02-19] MEDS: MEGESTROL 400 MG/10 ML UDC PO SCH (08:41)
--- NOTE | 2017-02-19 09:00 | NUR ---
PT IN BED SLEEPING. SHOWS NO S/S OF DISTRESS NOTED. PT IS NPO FOR PROCEDURE. NO MEDICATIONS WERE ADMINISTERED.
[2017-02-19] MEDS ORDERED: fentaNYL 0.05 MG/ML VIAL ONE (09:49)
[2017-02-19] MEDS ORDERED: MIDAZOLAM 2 MG/2 ML VIAL ONE (09:49)
--- NOTE | 2017-02-19 09:52 | NUR ---
PT LEFT UNIT FOR PROCEDURE. PT LEFT IN STABLE CONDITION
[2017-02-19] MEDS ORDERED: MIDAZOLAM 2 MG/2 ML VIAL IVP ONE (10:35)
[2017-02-19] MEDS ORDERED: fentaNYL 0.05 MG/ML VIAL IVP ONE (10:35)
--- NOTE | 2017-02-19 10:47 | NUR ---
PT ARRIVED BACK ON UNIT. PT BP 117/69, HR 102, SAT O2% 97% ON RA, RESPIRATIONS 18. PT IS SLEEPING AND SHOWS NO S/S OF DISTRESS.
--- NOTE | 2017-02-19 11:10 | NUR ---
FAXED CONCURRENT REVIEW TO [facility] [phone] PHONE PRAVIN [phone] X [phone] SPOKE WITH PRAVIN FROM [facility], IF PATIENT GOES HOME FOR HOME HEALTH USE [facility] [address] [phone] FOR TUBE FEEDING USE HEATHER. IF FAMILY WILL WANT SNF, CAN TRY [facility], [facility], [facility], [facility] OR [facility].
--- NOTE | 2017-02-19 12:00 | NUR ---
PT IS SLEEPING IN BED. PT SHOWS NO S/S OF DISTRESS. PT IS SLEEPING.
[2017-02-19] MEDS: INSULIN LISPRO SLIDING SCALE 100 UNITS/ML VIAL SUBQ PRN (13:32)
--- NOTE | 2017-02-19 14:45 | NUR ---
PT SEEN BY DR WOOD. RECEIVED ORDERS.
--- NOTE | 2017-02-19 15:00 | NUR ---
PT HAS FAMILY AT BEDSIDE. PT HARD TO WAKE UP. PT IS LETHARGIC. WILL CONTINUE TO MONITOR.
[2017-02-19 16:00] VITALS: BP 92/57
--- NOTE | 2017-02-19 16:00 | NUR ---
PT FAMILY AT BEDSIDE. PT IS SLEEPING. PT SHOWS NO S/S OF DISTRESS.
--- NOTE | 2017-02-19 16:30 | NUR ---
PT SAT O2% AT 92 ON ROOM AIR. BP IS 92/57. HR 109 TEMP 99.2. PT HAS FAMILY AT BEDSIDE. PT AROUSED WHEN SHAKEN. PT OPENS EYES AND IS MUMBLING. PT SHOWS NO S/S OF DISTRESS. WILL CONTINUE TO MONITOR.
--- NOTE | 2017-02-19 16:45 | NUR ---
PT PEG TUBE RUNNING WELL AT 40ML/HR AND FREE H2O 15O ML Q4H PER DR WOOD.
--- NOTE | 2017-02-19 17:50 | NUR ---
PT IS ASLEEP WITH FAMILY AT BEDSIDE. PT SHOWS NO S/S OF DISTRESS. WILL CONTINUE TO MONITOR.
--- NOTE | 2017-02-19 18:00 | NUR ---
PT IS SLEEPING. PT FAMILY AT BEDSIDE.
--- NOTE | 2017-02-19 19:20 | NUR ---
GAVE REPORT TO NIGHT NURSE. PT ENDORSED IN STABLE CONDITION.
--- NOTE | 2017-02-19 19:30 | NUR ---
RECEIVED REPORT FROM LISA ALVARADO AT BEDSIDE. PT IS VERY LETHARGIC AND AROUSABLE ONLY TO DEEP PAINFUL STIMULI WITH V/S T98.5, P106, R19, BP102/57 O2SAT 98% ON ROOM AIR. S/P G-TUBE INSERTION. NO S/S OF RESPIRATORY DISTRESS OR SOB NOTED. NO S/S OF PAIN OR ANY DISCOMFORT AT THIS TIME. ON G-TUBE FEEDING ISOSOURCE @ 40ML/HR CONTINUOUS. PLACEMENT AND PATENCY ARE CONFIRMED. ON LEGER CATHETER BY GRAVITY AND DRAINING WELL. PLAN OF CARE REVIEWED TO PT AND FAMILY AT BEDSIDE AND VERBALIZED UNDERSTANDING AND NEED TO BE REINFORCED. CALL LIGHT WITHIN REACH. WILL CONTINUE TO MONITOR.
--- NOTE | 2017-02-19 20:30 | NUR ---
PT STILL VERY LETHARGIC. AROUSABLE ONLY TO DEEP PAIN STIMULI WITH V/S T98.4, P110, R20, BP99/58, O2SAT 99% ON ROOM AIR. CALLED DR. GONZALEZ AND NOTIFIED AND NEW ORDERS WERE GIVEN (PLS. SEE CPOE). NEW ORDERS NOTED AND CARRIED OUT. WILL CONTINUE TO MONITOR.
[2017-02-19] MEDS ORDERED: NALOXONE 0.4 MG/ML VIAL IVP SCH (20:35)
--- NOTE | 2017-02-19 21:45 | NUR ---
FAMILY AT BEDSIDE TOLD ME THAT PT IS ALREADY AWAKE AND TALKING TO THEM. WILL CONTINUE TO MONITOR.
[2017-02-20] VITALS: BP 94/59
--- NOTE | 2017-02-20 00:30 | NUR ---
PT IS SLEEPING RIGHT NOW BUT EASILY AROUSABLE. NO S/S OF ANY DISCOMFORT AT THIS TIME. ALL NEEDS ARE ATTENDED. CALL LIGHT WITHIN REACH. WILL CONTINUE TO MONITOR.
[2017-02-20] MEDS: DEXT 5% / NACL 0.45% 1,000 ML IV SCH ×2 (00:32→05:48)
[2017-02-20] MEDS: ANTIFUNGAL CLEAR OINTMENT TP SCH (01:00)
--- NOTE | 2017-02-20 05:00 | NUR ---
AM CARE RENDERED. BED LINEN CHANGED. REPOSITIONED PATIENT. KEPT CLEAN AND DRY. CALL LIGHT WITHIN REACH. WILL CONTINUE TO MONITOR.
[2017-02-20 06:10] LABS: HEMOGLOBIN 12.5 g/dL (12.0-18.0); MEAN CORPUSCULAR HEMOGLOBIN 34 pg (27-31); MEAN CORPUSCULAR HGB CONC 33 g/dL (33-37); MEAN CORPUSCULAR VOLUME 104 fL (80-94); PLATELET COUNT (AUTO) 132 K/uL (140-450); RED BLOOD CELL COUNT(AUTO) 3.67 MIL/uL (4.20-6.10); RED CELL DISTRIBUTION WIDTH 14.7 % (11.6-13.7); WHITE BLOOD COUNT (AUTO) 16.6 K/uL (4.8-10.8)
[2017-02-20] MEDS: BLOOD GLUCOSE MONITORING 1 DEV DEV FS SCH ×4 (06:32→21:29)
[2017-02-20] MEDS: INSULIN LISPRO SLIDING SCALE 100 UNITS/ML VIAL SUBQ PRN ×3 (06:33→18:01)
[2017-02-20 06:53] LABS: CALCIUM 7.2 mg/dL (8.5-10.1); CREATININE 3.2 mg/dL (0.6-1.3); GLUCOSE 206 mg/dL (74-106); UREA NITROGEN, BLOOD 46 mg/dL (7-18)
[2017-02-20 06:57] LABS: CARBON DIOXIDE 14.5 mmol/L (21-32); CHLORIDE 121 mmol/L (98-107); POTASSIUM 3.2 mmol/L (3.5-5.1); SODIUM SERUM 150 mmol/L (136-145)
--- NOTE | 2017-02-20 07:05 | NUR ---
RECEIVED PATIENT REPORT AT BEDSIDE. PATIENT LETHARGIC BUT AROUSABLE. NO S/S OF DISTRESS NOTED. PATIENT ON ROOM AIR. G-TUBE FEEDING IN PLACE. LEGER CATHETER IN PLACE DRAINING DARK YELLOW URINE. IV LINE NOTED TO THE RIGHT HAND AND LEFT FOREARM. IV LINES SALINE LOCKED. BED LOWERED WITH CALL LIGHT WITHIN REACH. WILL CONTINUE TO MONITOR
[2017-02-20 07:22] LABS: ANION GAP 17.7 (8-16)
--- NOTE | 2017-02-20 07:24 | NUR ---
PT HAS NO S/S OF ANY DISCOMFORT. PLAN OF CARE ENDORSED TO AM SHIFT NURSE FOR CONTINUITY OF CARE.
[2017-02-20 07:29] LABS: ANISOCYTOSIS 1+; BAND % (MANUAL) 18 % (0-8); EOSINOPHILS % (MANUAL) 1 % (0-4); LYMPHOCYTES % (MANUAL) 3 % (20-46); MONOCYTES % (MANUAL) 8 % (5-12); NEUTROPHILS % (MANUAL) 70 (43-65); POIKILOCYTOSIS 1+
[2017-02-20 08:00] VITALS: BP 93/61
[2017-02-20] MEDS: MEGESTROL 400 MG/10 ML UDC PO SCH (09:11)
[2017-02-20] MEDS: FINASTERIDE 5 MG TAB PO SCH (09:11)
[2017-02-20] MEDS: DONEPEZIL 10 MG TAB PO SCH (09:11)
--- NOTE | 2017-02-20 09:20 | NUR ---
ADMINISTERED SCHEDULED MEDICATIONS VIA G-TUBE. 200ML RESIDUAL NOTED. TUBE FEEDING PUT ON HOLD. WILL RECHECK
--- NOTE | 2017-02-20 10:10 | NUR ---
MADE DR GARCIA AWARE OF PATIENT'S WBC, K LEVEL AND FEEDING RESIDUAL. ORDERS RECEIVED
[2017-02-20] MEDS ORDERED: POTASSIUM CHLORIDE 20% 40 MEQ/15 ML UDC GT SCH (10:52)
--- NOTE | 2017-02-20 11:29 | NUR ---
FAXED CONCURRENT REVIEW TO [facility] [phone] PHONE [phone] X [phone] GARCIA. SHE WAS INFORMED THAT THE FAMILY WANTS TO TAKE THE PATIENT HOME UPON DISCHARGE. DR. GARCIA WILL SPEAK WITH THE FAMILY ABOUT SNF FOR NEW GT.
[2017-02-20] MEDS: DEXTROSE 5% 1,000 ML IV SCH (12:34)
--- NOTE | 2017-02-20 13:30 | NUR ---
150ML RESIDUAL NOTED. FEEDING STILL ON HOLD. WILL RECHECK
--- NOTE | 2017-02-20 13:49 | NUR ---
PATIENT SEEN BY DR HUERTA. PATIENT'S PRESENT IN THE ROOM. PATIENT HAD LOOSE BM. PATIENT CLEANED AND REPOSITIONED
--- NOTE | 2017-02-20 14:57 | NUR ---
MADE DR GARCIA AWARE OF THE XRAY RESULTS. ORDERS RECEIVED
--- NOTE | 2017-02-20 15:26 | NUR ---
RESIDUAL RECHECKED. 100 ML RESIDUAL NOTED. FEEDING STILL ON HOLD. WILL RECHECK
[2017-02-20 15:58] LABS: HEMOGLOBIN 12.9 g/dL (12.0-18.0); MEAN CORPUSCULAR HEMOGLOBIN 34 pg (27-31); MEAN CORPUSCULAR HGB CONC 33 g/dL (33-37); MEAN CORPUSCULAR VOLUME 103 fL (80-94); PLATELET COUNT (AUTO) 120 K/uL (140-450); RED BLOOD CELL COUNT(AUTO) 3.79 MIL/uL (4.20-6.10); RED CELL DISTRIBUTION WIDTH 14.8 % (11.6-13.7); WHITE BLOOD COUNT (AUTO) 18.7 K/uL (4.8-10.8)
[2017-02-20 16:00] VITALS: BP 121/75
[2017-02-20 16:15] LABS: ANION GAP 15.8 (8-16); CALCIUM 7.4 mg/dL (8.5-10.1); CARBON DIOXIDE 16.9 mmol/L (21-32); CHLORIDE 120 mmol/L (98-107); CREATININE 3.2 mg/dL (0.6-1.3); GLUCOSE 162 mg/dL (74-106); POTASSIUM 3.7 mmol/L (3.5-5.1); SODIUM SERUM 149 mmol/L (136-145); UREA NITROGEN, BLOOD 46 mg/dL (7-18)
[2017-02-20 16:55] LABS: BAND % (MANUAL) 36 % (0-8); LYMPHOCYTES % (MANUAL) 12 % (20-46); MONOCYTES % (MANUAL) 3 % (5-12); NEUTROPHILS % (MANUAL) 49 (43-65); PLATELET ESTIMATE DECREASED
--- NOTE | 2017-02-20 18:29 | NUR ---
RESIDUAL RECHECKED. 60ML RESIDUAL NOTED. WILL RECHECK
--- NOTE | 2017-02-20 19:30 | NUR ---
RECEIVED REPORT FROM DEEDEE ALVARADO AT BEDSIDE. PT IS STILL LETHARGIC BUT EASILY AROUSABLE. INITIAL ASSESSMENT DONE. NO S/S OF RESPIRATORY DISTRESS OR SOB NOTED. NO S/S OF PAIN OR ANY DISCOMFORT AT THIS TIME. ON G-TUBE FEEDING ISOSOURCE @ 30ML/HR CONTINUOUS. PLACEMENT AND PATENCY ARE CONFIRMED. TUBE FEEDING IS ON HOLD RIGHT NOW D/T RESIDUAL IS MORE THAN 50ML. WILL RE-CHECK IT LATER. WILL RESUME IF RESIDUAL IS LESS THAN 50ML. ON LEGER CATHETER BY GRAVITY AND DRAINING WELL. PLAN OF CARE REVIEWED TO PT AND FAMILY AT BEDSIDE AND VERBALIZED UNDERSTANDING AND NEED TO BE REINFORCED. CALL LIGHT WITHIN REACH. WILL CONTINUE TO MONITOR.
--- NOTE | 2017-02-20 19:31 | NUR ---
PATIENT REPORT GIVEN AT BEDSIDE. PATIENT ENDORSED IN STABLE CONDITION
--- NOTE | 2017-02-20 20:00 | NUR ---
RESIDUAL IS 20ML. RESUME TUBE FEEDING ORDERED. WILL CONTINUE TO MONITOR.
[2017-02-20] MEDS: PIPER/TAZO 2.25GM/D5W PREMIX 50 ML IV SCH (21:29)
[2017-02-21] VITALS: BP 110/73
[2017-02-21] MEDS: PIPER/TAZO 2.25GM/D5W PREMIX 50 ML IV SCH ×3 (04:30→20:25)
--- NOTE | 2017-02-21 05:00 | NUR ---
AM CARE RENDERED. BED LINEN CHANGED. REPOSITIONED PATIENT. KEPT CLEAN AND DRY. CALL LIGHT WITHIN REACH. WILL CONTINUE TO MONITOR.
--- NOTE | 2017-02-21 06:00 | NUR ---
HOLD TUBE FEEDING D/T RESIDUAL IS 110ML . WILL ENDORSE TO AM SHIFT NURSE TO RECHECK IT AGAIN IN 2 HRS AND RESUME FEEDING IF RESIDUAL IS BELOW 50ML ORDERED. WILL CONTINUE TO MONITOR.
[2017-02-21] MEDS: BLOOD GLUCOSE MONITORING 1 DEV DEV FS SCH ×4 (06:34→20:31)
[2017-02-21 07:20] LABS: ANION GAP 18.2 (8-16); CALCIUM 7.7 mg/dL (8.5-10.1); CARBON DIOXIDE 14.7 mmol/L (21-32); CHLORIDE 119 mmol/L (98-107); GLUCOSE 103 mg/dL (74-106); POTASSIUM 3.9 mmol/L (3.5-5.1); SODIUM SERUM 148 mmol/L (136-145); UREA NITROGEN, BLOOD 46 mg/dL (7-18)
--- NOTE | 2017-02-21 07:20 | NUR ---
PT HAS NO S/S OF ANY DISCOMFORT. PLAN OF CARE ENDORSED TO AM SHIFT NURSE FOR CONTINUITY OF CARE.
--- NOTE | 2017-02-21 07:22 | NUR ---
RECEIVED REPORT FROM NIGHT RN.PT RESTING IN BED. AAOX1. NO S/S OF ACUTE DISTRESS. FLACC-0. IV SITE PATENT AND INTACT. 3+ PITTING EDEMA NOTED TO BOTH HANDS AND ANKLES. G-TUBE PATENT. LEGER CATHETER PATENT. CALL LIGHT WITHIN REACH. SAFETY MEASURES ENSURED. WILL CONTINUE TO MONITOR.
[2017-02-21] MEDS: DEXTROSE 5% 1,000 ML IV SCH ×2 (07:30→19:30)
[2017-02-21 08:00] VITALS: BP 96/61
[2017-02-21 08:04] LABS: HEMATOCRIT 40.5 % (36-52); HEMOGLOBIN 13.2 g/dL (12.0-18.0); MEAN CORPUSCULAR HEMOGLOBIN 34 pg (27-31); MEAN CORPUSCULAR HGB CONC 33 g/dL (33-37); MEAN CORPUSCULAR VOLUME 103 fL (80-94); PLATELET COUNT (AUTO) 115 K/uL (140-450); RED BLOOD CELL COUNT(AUTO) 3.95 MIL/uL (4.20-6.10); RED CELL DISTRIBUTION WIDTH 15.2 % (11.6-13.7); WHITE BLOOD COUNT (AUTO) 21.9 K/uL (4.8-10.8)
[2017-02-21 08:44] LABS: BAND % (MANUAL) 30 % (0-8); EOSINOPHILS % (MANUAL) 2 % (0-4); LYMPHOCYTES % (MANUAL) 6 % (20-46); MONOCYTES % (MANUAL) 3 % (5-12); NEUTROPHILS % (MANUAL) 59 (43-65); PLATELET ESTIMATE SLIGHTLY DECREASED
[2017-02-21] MEDS: DONEPEZIL 10 MG TAB PO SCH (09:00)
[2017-02-21] MEDS: MEGESTROL 400 MG/10 ML UDC PO SCH (09:08)
--- NOTE | 2017-02-21 09:11 | NUR ---
G-TUBE FEEDING RESTARTED. RESIDUAL 5ML. PT TOLERATED AM MEDS WELL. NO S/S OF ACUTE DISTRESS. FLACC-0. CALL LIGHT WITHIN REACH. SAFETY MEASURES ENSURED. WILL CONTINUE TO MONITOR.
[2017-02-21] MEDS ORDERED: VANCOMYCIN PER PHARMACY MC PRN (12:00)
--- NOTE | 2017-02-21 12:19 | NUR ---
02/21/17 RD FOLLOW UP COMPLETED PLEASE REFER TO NUTRITION PROGRESS NOTE UNDER CARE ACTIVITY FOR ESTIMATED NUTRITION NEEDS. RD RECOMMENDATIONS: 1. RECOMMEND CHANGING TUBE FEED TO NOVASOURCE RENAL AT A RATE OF 10 ML/HR AND ADVANCE 15 ML/HR Q6H TO GOAL OF 45 ML/HR FOR 2160 KCAL AND 98 GM PROTEIN PER DAY. 2. INCREASED PROTEIN AND KCAL NEEDED FOR LOW BMI AND WOUND HEALING.--NOTE RD WILL MONITOR RENAL LABS. 3. RD WILL F/U 2-3 DAYS; HIGH RISK. JOAQUINA HUDSON RD
--- NOTE | 2017-02-21 12:47 | NUR ---
PT SLEEPING IN BED. NO S/S OF ACUTE DISTRESS. RESIDUAL 10 ML. PT TOLERATED FEEDING WELL. FLACC-0. WILL CONTINUE TO MONITOR.
--- NOTE | 2017-02-21 13:31 | NUR ---
FAXED CONCURRENT REVIEW TO [facility] [phone] PHONE PRAVIN [phone]
--- NOTE | 2017-02-21 14:05 | NUR ---
GOT ORDER FOR SPUTUM SAMPLE. PT IS NONRESPONSIVE TO VERBAL STIMULATION. AT BEDSIDE. EXPLAINED TO HER THAT DR WANTS SPUTUM SAMPLE. VERBALIZED UNDERSTANDING AND WILL HELP HIM. CUP AT BEDSIDE. NO SOB OR DISTRESS NOTED. WILL CONTINUE TO MONITOR.
--- NOTE | 2017-02-21 14:42 | NUR ---
SS NOTE: PER CHERELLE FROM [facility] ([phone]), THEY ARE ABLE TO ACCEPT PT UPON DISCHARGE IF PT'S FAMILY ARE IN AGREEMENT WITH SNF.
[2017-02-21] MEDS: VANCOMYCIN 750 MG in DEXTROSE 5% 250 ML IV SCH ×2 (15:00→15:11)
[2017-02-21 16:00] VITALS: BP 106/53
--- NOTE | 2017-02-21 16:09 | NUR ---
PT SLEEPING IN BED. NO S/S OF ACUTE DISTRESS. DAUGHTER AT BEDSIDE. AWAITING GRANDCHILDREN TO SPEAK TO DR. GARCIA. CALL LIGHT WITHIN REACH. SAFETY MEASURES ENSURED. WILL CONTINUE TO MONITOR.
--- NOTE | 2017-02-21 17:49 | NUR ---
DAUGHTER AT BEDSIDE. DR. GARCIA PAGED.
[2017-02-21 19:04] LABS: APPEARANCE,URINE CLEAR (CLEAR); BILIRUBIN,URINE NEGATIVE (NEGATIVE); BLOOD, URINE 1+ (NEGATIVE); COLOR,URINE YELLOW (YELLOW); LEUKOCYTE ESTERASE ,URINE NEGATIVE (NEGATIVE); NITRITE, URINE NEGATIVE (NEGATIVE); PH,URINE 5.5 (5.0-9.0); PROTEIN,URINE 1+ (NEGATIVE); UGLUCOSE TRACE (NEGATIVE); UROBILINOGEN,URINE 0.2 EU/dL (0.2 - 1)
[2017-02-21 19:20] LABS: BACTERIA,URINE RARE /HPF (None Seen); RBC,URINE 0-3 /HPF (0-5); SQUAMOUS EPITHELIAL CELL,UR 0-3 /LPF (0-3 (FEW)); WBC,URINE 0-3 /HPF (0-5)
[2017-02-21 19:21] LABS: URINE AMORPHOUS URATE 1+ /HPF (None Seen)
--- NOTE | 2017-02-21 19:32 | NUR ---
ENDORSED PLAN OF CARE TO NIGHT RN. PT REMAINS IN STABLE CONDITION.
--- NOTE | 2017-02-21 19:35 | NUR ---
RECEIVED PT IN STABLE CONDITION FROM AM NURSE. AWAKE AND IN NO ACUTE DISTRESS NOTED. BEDREST. WITH FAMILY MEMBERS AT BEDSIDE. HAS IVF INFUSING WELL ON THE LT AC #20. CLEAR AND PATENT. LEGER CATHETER TO GRAVITY WITH CLEAR URINE OUTPUT. GETTING GT FEEDING . TOLERATING WELL. HAS BLE SCD MACHINE ON. REPOSITIONED FOR COMFORT. BED ON LOW POSITION. SIDE RAILS UP X2. CALL LIGHT PLACED WITHIN EASY REACH. FREQUENT ROUNDS NEEDED. WILL CONTINUE TO MONITOR.
--- NOTE | 2017-02-21 20:00 | NUR ---
RT ARM SWOLLEN AND BRUISED, FLUIDS DRAINING .
--- NOTE | 2017-02-21 20:30 | NUR ---
HAD A MODERATE SOFT BM. CLEANED LETICIA AREA AND KEPT DRY. REPOSITIONED FOR COMFORT.
--- NOTE | 2017-02-21 22:30 | NUR ---
MADE ROUNDS . ASLEEP. NO S/S OF ANY DISCOMFORT NOR PAIN NOTED. WILL CONTINUE TO MONITOR.
[2017-02-22] VITALS: BP 101/53
--- NOTE | 2017-02-22 | NUR ---
VITAL SIGNS STABLE. NO S/S OF RESPIRATORY DISTRESS NOTED.
--- NOTE | 2017-02-22 02:00 | NUR ---
REPOSITIONED FOR COMFORT. NO DISTRESS NOTED.
[2017-02-22] MEDS: DEXTROSE 5% 1,000 ML IV SCH (03:30)
[2017-02-22] MEDS: PIPER/TAZO 2.25GM/D5W PREMIX 50 ML IV SCH ×3 (04:42→21:27)
--- NOTE | 2017-02-22 05:00 | NUR ---
HAD ANOTHER SOFT TO LIQUID BM ,MODERATE IN AMOUNT. SACROCOCCYGEAL AREA WITH INCONTINENT DERMATITIS, BEKA AND SCROTUM WITH REDNESS . CLEANED WITH MILD SOAP AND WATER , KEPT DRY THEN APPLIED ANTIFUNGAL CLEAR OINTMENT ORDERED. REPOSITIONED FOR COMFORT.
--- NOTE | 2017-02-22 05:30 | NUR ---
TOOK PICTURE OF LT SHOULDER SKIN TEAR 3.0 CM X 1.0 CM. . CLEANED WITH NS ,PAT DRY THEN COVERED WITH TRANSPARENT DRESSING.
[2017-02-22] MEDS: BLOOD GLUCOSE MONITORING 1 DEV DEV FS SCH ×4 (06:47→21:25)
[2017-02-22 07:00] LABS: HEMATOCRIT 36.7 % (36-52); MEAN CORPUSCULAR HEMOGLOBIN 34 pg (27-31); MEAN CORPUSCULAR HGB CONC 33 g/dL (33-37); MEAN CORPUSCULAR VOLUME 103 fL (80-94); PLATELET COUNT (AUTO) 113 K/uL (140-450); RED BLOOD CELL COUNT(AUTO) 3.57 MIL/uL (4.20-6.10); RED CELL DISTRIBUTION WIDTH 14.8 % (11.6-13.7); WHITE BLOOD COUNT (AUTO) 17.9 K/uL (4.8-10.8)
--- NOTE | 2017-02-22 07:00 | NUR ---
CHECKED GT FEEDING . NO RESIDUAL NOTED.
--- NOTE | 2017-02-22 07:20 | NUR ---
ENDORSED PT IN STABLE CONDITION TO AM NURSE.
--- NOTE | 2017-02-22 07:22 | NUR ---
RECEIVED REPORT FROM NIGHT RN. PT RESTING IN BED. AAOX1. NO S/S OF OF ACUTE DISTRESS. IV SITE PATENT AND INTACT. FLACC-0. PT IS VERBAL AND RESPONDS TO NAME. CLEAR DRESSING NOTED TO LEFT SHOULDER. LEGER CATHETER IS PATENT. G-TUBE FEEDING INFUSING, PT TOLERATING WELL. RESIDUAL 5ML. CALL LIGHT WITHIN REACH. SAFETY MEASURES ENSURED. WILL CONTINUE TO MONITOR.
[2017-02-22 07:49] LABS: ANISOCYTOSIS 1+; BAND % (MANUAL) 20 % (0-8); LYMPHOCYTES % (MANUAL) 10 % (20-46); MONOCYTES % (MANUAL) 5 % (5-12); NEUTROPHILS % (MANUAL) 65 (43-65); POIKILOCYTOSIS 1+
[2017-02-22 07:58] LABS: POTASSIUM 3.9 mmol/L (3.5-5.1); SODIUM SERUM 142 mmol/L (136-145)
[2017-02-22 07:59] LABS: ANION GAP 19.6 (8-16); CALCIUM 7.4 mg/dL (8.5-10.1); CARBON DIOXIDE 13.3 mmol/L (21-32); CHLORIDE 113 mmol/L (98-107); CREATININE 2.8 mg/dL (0.6-1.3); GLUCOSE 126 mg/dL (74-106); UREA NITROGEN, BLOOD 43 mg/dL (7-18)
[2017-02-22 08:00] VITALS: BP 111/66
[2017-02-22] MEDS: DONEPEZIL 10 MG TAB PO SCH (09:00)
--- NOTE | 2017-02-22 09:30 | NUR ---
SS NOTE: I SPOKE WITH DR. GARCIA THIS MORNING. SHE STATED THAT SHE SPOKE WITH PT'S DTR - SERGIO AND EXTENSIVELY ABOUT A SAFE DISCHARGE PLAN. SHE ALSO STATED THAT THEY ARE IN AGREEMENT WITH PT GOING TO SNF UPON DISCHARGE.
[2017-02-22] MEDS: MEGESTROL 400 MG/10 ML UDC PO SCH (09:39)
--- NOTE | 2017-02-22 09:43 | NUR ---
PT RESTING IN BED. G-TUBE FEEDING INFUSING. PT TOLERATING WELL. NO RESIDUAL. NO S/S OF ACUTE DISTRESS. ARICEPT HELD DUE TO BP 103/57. PT TOLERATED AM MEDS WELL. WILL CONTINUE TO MONITOR.
--- NOTE | 2017-02-22 11:52 | NUR ---
spoke to Lia and gave Auth for [facility] [id number] and to use [facility] for transport and just give the [facility] [employer] ID number when call transport.
--- NOTE | 2017-02-22 12:06 | NUR ---
PT RESTING IN BED. NO S/S OF ACUTE DISTRESS. PT TOLERATED FEEDING WELL. FLACC-0. CALL LIGHT WITHIN REACH. SAFETY MEASURES ENSURED. WILL CONTINUE TO MONITOR.
--- NOTE | 2017-02-22 14:08 | NUR ---
PT RESTING IN BED. NO S/S OF ACUTE DISTRESS. PT TOLERATED FEEDING WELL. CALL LIGHT WITHIN REACH. SAFETY MEASURES ENSURED. WILL CONTINUE TO MONITOR.
[2017-02-22 16:00] VITALS: BP 106/62
--- NOTE | 2017-02-22 18:09 | NUR ---
PT RESTING IN BED. NO S/S OF ACUTE DISTRESS. PT'S FAMILY AT BEDSIDE. CALL LIGHT WITHIN REACH. SAFETY MEASURES ENSURED. WILL CONTINUE TO MONITOR.
--- NOTE | 2017-02-22 19:23 | NUR ---
ENDORSED PLAN OF CARE TO NIGHT RN. PT REMAINS STABLE.
--- NOTE | 2017-02-22 19:24 | NUR ---
RECEIVED REPORT, ASSUMED CARE. PT AOX1. FAMILY AT BEDSIDE. NO C/O PAIN AT THIS TIME. REGULAR BREATHING PATTERN. MED/SURG PT. HL TO LEFT AC, AND RIGHT HAND, INTACT AND PATENT, NO S/S OF INFILTRATION. GTF INFUSING AT 40CC/HR, TOLERATING WELL. NO RESIDUAL NOTED. PLAN OF CARE DISCUSSED TO PT AND FAMILY, VERBALIZED UNDERSTANDING. LEGER IN PLACE, DRAINING WELL. BED IN LOW POSITION. FREQUENT ROUNDS NEEDED. CALL LIGHT WITHIN EASY REACH. ANTICIPATED NEEDS. WITH INCONTINENCE DERMATITIS TO SACROCOCCYGEAL. MAINTAINED GOOD PERICARE. BUE AND BLE WITH EDEMA, ELEVATED WITH PILLOW. WILL CONTINUE TO MONITOR.
--- NOTE | 2017-02-22 20:30 | NUR ---
REPOSITION PT FOR COMFORT. NO RESPIRATORY DISTRESS AT THIS TIME. WILL CONTINUE TO MONITOR.
--- NOTE | 2017-02-22 22:00 | NUR ---
MADE ROUNDS, PT SLEEPING, NO DISCOMFORT NOTED AT THIS TIME.
[2017-02-23] VITALS: BP 104/53
--- NOTE | 2017-02-23 00:16 | NUR ---
PT AWAKE AT THIS TIME, MUMBLING. NO DISTRESS, PT IN STABLE CONDITION AT THIS TIME. O2 SAT 100% RA.
--- NOTE | 2017-02-23 04:38 | NUR ---
PT SOUND ASLEEP BUT EASILY AROUSABLE. RESPIRATION REGULAR AND UNLABORED. NO ACUTE CHANGES NOTED AT THIS TIME. NO FACIAL GRIMACING OR MOANING INDICATING PAIN. REPOSITIONED Q2H. WILL CONTINUE TO MONITOR.
[2017-02-23] MEDS: PIPER/TAZO 2.25GM/D5W PREMIX 50 ML IV SCH ×2 (05:09→11:51)
[2017-02-23 05:33] LABS: BASOPHILS # (AUTO) 0.1 K/uL (0.00-0.22); EOSINOPHILS # (AUTO) 0.5 K/uL (0-0.4); EOSINOPHILS % (AUTO) 4.3 % (0.0-4.0); HEMATOCRIT 36.6 % (36-52); HEMOGLOBIN 11.8 g/dL (12.0-18.0); LYMPHOCYTES # (AUTO) 0.8 K/uL (2.0-11.5); LYMPHOCYTES % (AUTO) 7.1 % (20.5-51.1); MEAN CORPUSCULAR HEMOGLOBIN 33 pg (27-31); MEAN CORPUSCULAR HGB CONC 32 g/dL (33-37); MEAN CORPUSCULAR VOLUME 103 fL (80-94); MONOCYTES # (AUTO) 0.8 K/uL (0.8-1.0); MONOCYTES % (AUTO) 7.5 % (1.7-9.3); NEUTROPHILS # (AUTO) 8.8 K/uL (1.8-7.7); NEUTROPHILS % (AUTO) 80.1 % (42.2-75.2); PLATELET COUNT (AUTO) 143 K/uL (140-450); RED BLOOD CELL COUNT(AUTO) 3.56 MIL/uL (4.20-6.10); RED CELL DISTRIBUTION WIDTH 15.4 % (11.6-13.7)
--- NOTE | 2017-02-23 06:00 | NUR ---
GT FEEDING TOLERATING WELL. NO RESIDUAL NOTED AT THIS TIME.
[2017-02-23] MEDS: BLOOD GLUCOSE MONITORING 1 DEV DEV FS SCH ×2 (06:11→11:38)
[2017-02-23 06:25] LABS: ANION GAP 15.5 (8-16); CALCIUM 7.4 mg/dL (8.5-10.1); CARBON DIOXIDE 16.3 mmol/L (21-32); CHLORIDE 115 mmol/L (98-107); CREATININE 2.9 mg/dL (0.6-1.3); GLUCOSE 117 mg/dL (74-106); POTASSIUM 3.8 mmol/L (3.5-5.1); SODIUM SERUM 143 mmol/L (136-145); UREA NITROGEN, BLOOD 41 mg/dL (7-18)
--- NOTE | 2017-02-23 07:19 | NUR ---
ENDORSED PT TO THE NEXT SHIFT FOR CONTINUITY OF CARE. PT IN STABLE CONDITION.
--- NOTE | 2017-02-23 07:20 | NUR ---
RECEIVED REPORT FROM NIGHT NURSE AT PT BEDSIDE. PT SLEEPING IN BED, ALERT TO NAME. EDEMATOUS BUE/BLE, WEEPING FROM ARMS. HAS G-TUBE IN PLACE, 0 RESIDUAL NOTED. PT HAS LEGER TO GRAVITY WITH CLEAR YELLOW URINE. NO S/S OF RESPIRATORY DISTRESS. DENIES DISCOMFORT. IV SITE PATENT AND INTACT. BED IN LOWEST POSITION. CALL LIGHT WITHIN REACH. WILL CONTINUE TO MONITOR.
[2017-02-23 08:00] VITALS: BP 95/61
[2017-02-23] MEDS: MEGESTROL 400 MG/10 ML UDC PO SCH (08:34)
[2017-02-23] MEDS: DONEPEZIL 10 MG TAB PO SCH (08:34)
[2017-02-23] MEDS ORDERED: MEGE40SU PO (10:46)
[2017-02-23] MEDS ORDERED: ACET-9525 PO (10:46)
[2017-02-23] MEDS ORDERED: ROBDM PO (10:46)
[2017-02-23] MEDS ORDERED: ATRN INH (10:46)
[2017-02-23] MEDS ORDERED: TYL650S RC (10:46)
[2017-02-23] MEDS ORDERED: CLON0.1T42 PO (10:46)
[2017-02-23] MEDS ORDERED: PRON INH (10:46)
[2017-02-23] MEDS ORDERED: HUMSLIDE SUBQ (10:46)
[2017-02-23] MEDS ORDERED: DONE10TA3 GT (10:46)
--- NOTE | 2017-02-23 11:08 | NUR ---
SS NOTE: PER CHERELLE [place] [facility][phone][place] PT CAN GO TO ROOM 47C ANYTIME UNDER DR. Andrey ARCEO. SILVIANO CELESTIN.
--- NOTE | 2017-02-23 12:00 | NUR ---
PATIENT WAS ASSISTED IN CHANGING OF POSITIONS. LINENS CLEANED. NO S/S OF ACUTE DISTRESS. PT TOLERATING FEEDING WELL.
--- NOTE | 2017-02-23 12:03 | NUR ---
CM NOTE SPOKE WITH SILVIANO COSTELLO OF [facility] PH# [phone] EXT [phone] AND SHE SAID TO USE [facility] FOR PATIENT TRANSPORT USING PATIENT'S [employer] [employer] SR POLICY#. SPOKE WITH KHUSHBU OF [facility] PH# [phone] EXT [phone] TO SET UP PATIENT TRANSPORT BY [facility] GOING TO [facility] [place] RM [address] Andrey ARCEO. RECEIVED CALL FROM DOVRAY OF [facility] PH# [phone] EXT [phone] AND SHE SAID THE PATIENT'S TRANSPORT IS SET UP WITH [facility], [employer] TIME 1400 TODAY. NUMBER TO CALL AT [facility] FOR REPORT PH# [phone]. CHARGE NURSE JEFF AND NURSE JUWAN CELESTIN.
--- NOTE | 2017-02-23 13:40 | NUR ---
REPORT GIVEN JENNY MAE AT [facility]. PATIENT RESTING IN BED. NO S/S OF ACUTE DISTRESS.
--- NOTE | 2017-02-23 14:20 | NUR ---
PATIENT SEEN BY DR. HUERTA AT BEDSIDE. NO NEW ORDERS.
--- NOTE | 2017-02-23 15:00 | NUR ---
[facility] HERE TO TAKE PATIENT TO [facility] [place]. PATIENT RESTING IN BED. TOLERATED G-TUBE FEEDING, G-TUBE PATENT AND INTACT. IV SITE PATENT AND INTACT, KEPT IN PLACE. ALERT TO SELF. NO S/S OF RESPIRATORY DISTRESS. NO S/S OF DISCOMFORT NOTED. ACCEPTING FACILITY AWARE OF PATIENT TRANSFER. PT FAMILY AWARE. LEGER KEPT IN PLACE, 500ML OUT TOTAL IN AM SHIFT.
== END 2017-02-23 15:05 | DRG 177 ==
LOC: MED 22:33 → MIC 02-15 00:47 → MTU 02-15 18:20
PROVIDERS: ADMIT Hospitalist; ATTEND Hospitalist
PROC: 0DH63UZ Insertion of Feeding Device into Stomach, Percutaneous Approach (ICD-10-PCS; 2017-02-19)
PROC: 3E0G76Z Introduction of Nutritional Substance into Upper GI, Via Natural or Artificial Opening (ICD-10-PCS; 2017-02-19)
PROC: 0DJD8ZZ Inspection of Lower Intestinal Tract, Via Natural or Artificial Opening Endoscopic (ICD-10-PCS; principal; 2017-02-19 10:00)
DX: J69.0 Pneumonitis due to inhalation of food and vomit (principal); G93.41 Metabolic encephalopathy; E43 Unspecified severe protein-calorie malnutrition; E87.0 Hyperosmolality and hypernatremia; N17.9 Acute kidney failure, unspecified; N39.0 Urinary tract infection, site not specified; R64 Cachexia; Z68.1 Body mass index [BMI] 19.9 or less, adult; F32.9 Major depressive disorder, single episode, unspecified; E86.0 Dehydration; G20 Parkinson's disease; F02.80 Dementia in other diseases classified elsewhere, unspecified severity, without behavioral disturbance, psychotic disturbance, mood disturbance, and anxiety; K21.9 Gastro-esophageal reflux disease without esophagitis; N40.0 Benign prostatic hyperplasia without lower urinary tract symptoms; M19.90 Unspecified osteoarthritis, unspecified site; E87.5 Hyperkalemia; G30.9 Alzheimer's disease, unspecified; E11.22 Type 2 diabetes mellitus with diabetic chronic kidney disease; E83.42 Hypomagnesemia; I12.9 Hypertensive chronic kidney disease with stage 1 through stage 4 chronic kidney disease, or unspecified chronic kidney disease; N18.3 Chronic kidney disease, stage 3 (moderate); R13.19 Other dysphagia; Z79.899 Other long term (current) drug therapy
CPT/HCPCS: 36415; 71010; 80048; 80053; 81001; 82330; 82948; 83605; 83735; 83880; 84484; 85025; 85610; 85730; 87040; 87081; 87086; 90732; 92526; 93005; 94640; 96360; 96361; 99285; C1758; J0696; J1650; J1815; J2250; J2270; J2310; J2543; J3010; J3370; J7030; J7060; J7613; J7644; Q0092